=== PATIENT | female | born 1990 | race Caucasian/White ===

== ENCOUNTER 2016-04-22 03:58 | Emergency (ER) | payer MEDICAID ==
[~2016-04-22] VITALS: Ht 152.4 cm; Wt 52.5 kg
[~2016-04-22 03:58] MED LIST: ACET500C5 PO; CIPR500T4 PO; DICY10CA60 PO; HYDR-3498 PO; HYDR-842 PO; HYDR-906 PO; NAPR-260 PO; ONDA4TAB35 PO; ONDA4TAB8 PO; ONDA8TAB14 PO; OXYC-279 PO; PHEN-538 PO
[2016-04-22 04:04] VITALS: Ht 152.4 cm; Wt 52.5 kg
--- NOTE | 2016-04-22 04:24 | ERA ---
ER Documentation Chief Complaint Date/Time DATE: 04/22/16 TIME: 04:23 Chief Complaint RUq abd pain w/ vomiting since 8hours ago, 12 wks HPI The patient is a 26-year-old female, presenting with right upper quadrant abdominal pain that began about 7 PM yesterday. She has similar symptoms previously from gallbladder attack. She has vomited couple times today, mostly mucous. She denies fever, chills, neck pain, chest pain, diarrhea, constipation , dysuria. She is about 12 weeks , denies any vaginal bleeding. She does not smoke, drink, 2 para 1 Past medical history: Cholelithiasis Past surgical history: None ROS All systems reviewed and are negative except as per history of present illness. Medications Home Meds Active Scripts Cephalexin* (Keflex*) 500 Mg Capsule, 500 MG PO Q6, #40 CAP Prov:SOLIS DUDLEY MD 04/22/16 Ondansetron (Ondansetron Odt) 4 Mg Tab.rapdis, 4 MG PO Q6H Y for NAUSEA AND/OR VOMITING, #10 TAB Prov:SOLIS DUDLEY MD 04/22/16 Hydrocodone/Acetaminophen (Rosebud 5-325 Tablet) 1 Each Tablet, 1 TAB PO Q6H Y for PAIN, #7 TAB Prov:SOLIS DUDLEY MD 04/22/16 Acetaminophen* (Tylophen*) 500 Mg Capsule, 1 CAP PO Q6H Y for PAIN AND OR ELEVATED TEMP, #30 CAP Prov:TAMRA EATON PA-C 02/29/16 Ondansetron Hcl* (Zofran*) 4 Mg Tablet, 4 MG PO Q6H for NAUSEA AND/OR VOMITING, #30 TAB Prov:MINERVA CAREY PA-C 12/30/15 Oxycodone HCl/Acetaminophen (Percocet 5-325 mg Tablet) 1 Each Tablet, 1 EACH PO QHS, #7 TAB Prov:MINERVA CAREY PA-C 12/30/15 Ondansetron (Ondansetron Odt) 8 Mg Tab.rapdis, 8 MG PO Q6H Y for NAUSEA AND/OR VOMITING, #10 TAB Prov:RAMSEY DODD MD 12/28/15 Hydrocodone/Acetaminophen (Rosebud 5-325 Tablet) 1 Each Tablet, 1 TAB PO Q6H Y for PAIN, #14 TAB Prov:RAMSEY DODD MD 12/28/15 Hydrocodone Bit-Acetaminophen* (Rosebud*) 5-325 Mg Tab, 1 TAB PO Q6 Y for PAIN, # 14 TAB Prov:SHILPA DORSEY PA-C 11/21/15 Ciprofloxacin Hcl* (Ciprofloxacin Hcl*) 500 Mg Tablet, 500 MG PO BID for 7 Days , TAB Prov:SHILPA DORSEY PA-C 11/21/15 Naproxen* (Naprosyn*) 500 Mg Tablet, 500 MG PO BID Y for PAIN AND/OR INFLAMMATION, #30 TAB Prov:MINERVA CAREY PA-C 10/18/15 Hydrocodone Bit-Acetaminophen* (Rosebud*) 5-325 Mg Tab, 1 TAB PO Q6 Y for PAIN, # 10 TAB Prov:MINERVA CAREY PA-C 10/18/15 Hydroxyzine Hcl* (Atarax*) 25 Mg Tab, 25 MG PO Q6H Y for ANXIETY, #10 TAB Prov:YOLANDA SHORE PA-C 10/04/15 Phenazopyridine Hcl* (Pyridium*) 200 Mg Tab, 200 MG PO TID Y for URINARY PAIN, # 6 TAB Prov:JESSICA SCHMID NP 09/22/15 Ondansetron Hcl* (Zofran* ODT) 4 mg -ODT Tab.disper, 4 MG PO Q8 Y for NAUSEA AND /OR VOMITING, #30 TAB Prov:JESSICA SCHMID NP 09/22/15 Dicyclomine Hcl* (Bentyl*) 10 Mg Capsule, 10 MG PO QID, #20 CAP Prov:JESSICA SCHMID NP 09/22/15 Allergies Allergies: Coded Allergies: No Known Drug Allergy (Verified Allergy, Unknown, 01/20/09) PMhx/Soc History of Surgery: No Anesthesia Reaction: No Hx Neurological Disorder: No Hx Respiratory Disorders: No Hx Cardiac Disorders: No Hx Psychiatric Problems: No Hx Miscellaneous Medical Probl: Yes (GALL STONES ) Hx Alcohol Use: No Hx Substance Use: No Hx Tobacco Use: No Physical Exam Vitals Vital Signs Date Time Temp Pulse Resp B/P Pulse Ox O2 Delivery O2 Flow Rate FiO2 04/22/16 04:04 99.4 127 20 115/59 100 Physical Exam Const: No acute distress. Head: Atraumatic. Eyes: Normal Conjunctiva. ENT: Normal External Ears, Nose and Mouth. Neck: Full range of motion. No meningismus. Resp: Clear to auscultation bilaterally. Cardio: Regular rate and rhythm, no murmurs. Abd: Soft, non distended, normal bowel sounds, mild epigastric and right upper quadrant tenderness, no right lower quadrant, CVA, rigidity, rebound tenderness Skin: No petechiae or rashes. Back: No midline or flank tenderness. Ext: No cyanosis, or edema. Neur: Awake and alert. No focal deficit Psych: Normal Mood and Affect. Result Diagram: 04/22/1642904/22/16429 Results 24 hrs Laboratory Tests Test 04/22/16 04:30 04/22/16 05:14 Alanine Aminotransferase (ALT/SGPT) 21IU/L Albumin 4.0g/dl Albumin/Globulin Ratio 1.02 Alkaline Phosphatase 80IU/L Anion Gap 19 Aspartate Amino Transf (AST/SGOT) 26IU/L Basophils # 0.010^3/ul Basophils % 0.3% Blood Urea Nitrogen 5mg/dl Calcium Level 9.6mg/dl Carbon Dioxide Level 22mmol/L Chloride Level 103mmol/L Creatinine 0.49mg/dl Direct Bilirubin 0.00mg/dl Eosinophils # 0.010^3/ul Eosinophils % 0.1% Globulin 3.90g/dl Glucose Level 104mg/dl Hematocrit 33.2% Hemoglobin 11.5g/dl Indirect Bilirubin 0.2mg/dl Lipase 65U/L Lymphocytes # 0.210^3/ul Lymphocytes % 2.9% Mean Corpuscular Hemoglobin 31.1pg Mean Corpuscular Hemoglobin Concent 34.5g/dl Mean Corpuscular Volume 90.2fl Mean Platelet Volume 8.5fl Monocytes # 0.310^3/ul Monocytes % 3.2% Neutrophils # 7.710^3/ul Neutrophils % 93.5% Nucleated Red Blood Cells # 0.010^3/ul Nucleated Red Blood Cells % 0.0/100WBC Platelet Count 92149^3/UL Potassium Level 3.4mmol/L Red Blood Count 3.6810^6/ul Red Cell Distribution Width 13.6% Sodium Level 141mmol/L Total Bilirubin 0.2mg/dl Total Protein 7.9g/dl White Blood Count 8.210^3/ul Bedside Urine Blood Trace-intact Bedside Urine Glucose (UA) Negative Bedside Urine Ketones (LAB) 4+ Bedside Urine Leukocyte Esterase (L 2+ Bedside Urine Nitrite (LAB) Negative Bedside Urine Protein (LAB) 1+ Bedside Urine pH (LAB) 6.0 Current Medications Medications (Trade) Dose Ordered Sig/Jose Route PRN Reason Start Time Stop Time Status Last Admin Dose Admin Sodium Chloride 1,000 ml @ 1,000 mls/hr Q1H ONCE IV 04/22/16 04:30 04/22/16 05:29 04/22/16 04:50 Sodium Chloride (NS) 1,000 ml @ 1,000 mls/hr Q1H ONCE IV 04/22/16 04:30 04/22/16 05:29 04/22/16 05:02 Morphine Sulfate (morphine) 2 mg ONCE ONCE IV 04/22/16 04:30 04/22/16 04:31 DC 04/22/16 04:53 Ondansetron HCl (Zofran Inj) 4 mg ONCE STAT IV 04/22/16 04:27 04/22/16 04:30 DC 04/22/16 04:52 Pantoprazole (Protonix Iv) 40 mg ONCE ONCE IV 04/22/16 04:30 04/22/16 04:31 DC 04/22/16 04:52 Procedures/MDM MEDICAL MAKING DECISION: The patient is 26-year-old female, presenting with acute pericolic, acute cystitis, acute dehydration, acute hypokalemia. She was treated with 2 L normal saline for clinical dehydration, morphine 2 mg IV for pain, Zofran 4 IV for nausea, Protonix 40 mg IV, potassium chloride 20 mEq p.o. with good response. The differential diagnoses considered include but are not limited to cholelithiasis, cholecystitis, cystitis, pancreatitis, hepatitis, gastritis, peptic ulcer disease, gastric ulcer, appendicitis, diverticulitis, cholangitis, choledocholithiasis, partial small bowel obstruction. Departure Diagnosis: Primary Impression: Biliary colic Additional Impressions: UTI (urinary tract infection) Dehydration Hypokalemia Anemia Condition: Good Comments She was discharged with Kegerard RosebudNataliafran I discussed the findings with the patient. I advised the patient to follow-up with the primary physician in about 1-2 days for referral to general surgery for elective cholecystectomy, sooner if needed and return if any concern. SOLIS DUDLEY MD Apr 22, 2016 04:23
[2016-04-22] MEDS ORDERED: ONDANSETRON 4 MG INJ IV STA ×2 (04:27→06:00)
[2016-04-22] MEDS ORDERED: morphine 2 MG INJ IV ONE ×2 (04:30→06:00)
[2016-04-22] MEDS ORDERED: SOD CHLORIDE 0.9% 1,000 ML IV ONE ×2 (04:30)
[2016-04-22] MEDS ORDERED: PANTOPRAZOLE 40 MG INJ IV ONE (04:30)
[2016-04-22 04:51] LABS: BASOPHILS % 0.3 % (0.0-2.0); EOSINOPHILS % 0.1 % (0.0-7.0); HEMATOCRIT 33.2 % (37.0-47.0); HEMOGLOBIN 11.5 g/dl (12.0-16.0); LYMPHOCYTES # 0.2 10^3/ul (0.8-2.9); LYMPHOCYTES % 2.9 % (15.0-51.0); MEAN CORPUSCULAR HEMOGLOBIN 31.1 pg (29.0-33.0); MEAN CORPUSCULAR HGB CONC 34.5 g/dl (32.0-37.0); MEAN CORPUSCULAR VOLUME 90.2 fl (82.0-101.0); MEAN PLATELET VOLUME 8.5 fl (7.4-10.4); MONOCYTE # 0.3 10^3/ul (0.3-0.9); MONOCYTES % 3.2 % (0.0-11.0); NEUTROPHIL # 7.7 10^3/ul (1.6-7.5); NEUTROPHILS % 93.5 % (39.0-77.0); PLATELET COUNT 251 10^3/UL (140-440); RED BLOOD COUNT 3.68 10^6/ul (4.20-5.40); RED CELL DISTRIBUTION WIDTH 13.6 % (11.5-14.5); UNCORRECTED WBC 8.2 10^3/ul (4.8-10.8); WHITE BLOOD COUNT 8.2 10^3/ul (4.8-10.8)
[2016-04-22 04:59] LABS: CONDITION 1; LH ANALYZER COMMENTS 1
[2016-04-22 05:14] LABS: URINE BLOOD (Dip) POC Trace-intact (NEGATIVE)
[2016-04-22] MEDS ORDERED: HYDR-906 PO (05:16)
[2016-04-22] MEDS ORDERED: ONDA4TAB14 PO (05:16)
[2016-04-22] MEDS ORDERED: CEPH-443 PO (05:19)
[2016-04-22 05:20] LABS: POTASSIUM 3.4 mmol/L (3.5-5.1)
[2016-04-22 05:22] LABS: ALBUMIN/GLOBULIN RATIO 1.02; BILIRUBIN,INDIRECT 0.2 mg/dl (0-1.1); BILIRUBIN,TOTAL 0.2 mg/dl (0.2-1.3); CALCIUM 9.6 mg/dl (8.4-10.2); CREATININE 0.49 mg/dl (0.44-1.00); TOTAL PROTEIN 7.9 g/dl (6.1-8.1)
[2016-04-22] MEDS ORDERED: POTASSIUM CHLORIDE (SR) 20 MEQ TAB PO ONE (05:37)
[2016-04-22 08:23] VITALS: BP 98/59; PULSE 113; RESP 16
== END 2016-04-22 08:35 | disposition home or self-care (01) ==
LOC: E/R 03:58
DX: O23.41 Unspecified infection of urinary tract in pregnancy, first trimester (principal); O99.280 Endocrine, nutritional and metabolic diseases complicating pregnancy, unspecified trimester; E86.0 Dehydration; E87.6 Hypokalemia; Z3A.12 12 weeks gestation of pregnancy
CPT/HCPCS: 36415; 80053; 81003; 83690; 85025; 96374; 96375; 96376; C9113; J2270; J2405; J7030; Z7502; Z7610

== ENCOUNTER 2016-07-07 19:01 | Outpatient (CLI) | payer SELFPAY ==
[~2016-07-07] VITALS: Ht 154.9 cm; Wt 54.8 kg
[~2016-07-07 19:01] MED LIST changes: +CEPH-443 PO; +ONDA4TAB14 PO
[2016-07-07 19:46] VITALS: BP 115/69; PULSE 106; RESP 18
[2016-07-07] MEDS ORDERED: PRENAT PO (19:53)
[2016-07-07 20:00] LABS: ADD UMIC YES; URINE BILIRUBIN (Dip) NEGATIVE (NEGATIVE); URINE BLOOD (Dip) NEGATIVE (NEGATIVE); URINE COLOR YELLOW (YELLOW); URINE GLUCOSE (Dip) NEGATIVE (NEGATIVE); URINE KETONES (Dip) 40 (NEGATIVE); URINE LEUKOCYTE ESTERASE (Dip) 1+ (NEGATIVE); URINE NITRITE (Dip) NEGATIVE (NEGATIVE); URINE TOTAL PROTEIN (Dip) NEGATIVE (NEGATIVE); URINE UROBILINOGEN (Dip) 1.0 E.U./dL (0.1-1.0)
[2016-07-07] MEDS ORDERED: hydrOXYzine HCL 100 MG INJ IM ONE (20:00)
[2016-07-07] MEDS ORDERED: MEPERIDINE 50 MG INJ IM ONE (20:00)
[2016-07-07] MEDS ORDERED: ONDANSETRON 4 MG INJ IV STA (20:20)
[2016-07-07] MEDS ORDERED: HYDROCODONE/APAP (5/325) TAB PO ONE (20:30)
[2016-07-07] MEDS ORDERED: LACTATED RINGER'S 500 ML IV ONE (20:30)
[2016-07-07 20:35] LABS: SQUAMOUS EPITHELIAL CELL,UR MODERATE; URINE RBCS 0-2 /HPF (0)
[2016-07-07 20:36] LABS: BACTERIA,URINE FEW
[2016-07-07 20:42] LABS: ADD SCAN DIFF NO
[2016-07-07 20:46] LABS: BASOPHILS % 0.1 % (0.0-2.0); HEMOGLOBIN 9.7 g/dl (12.0-16.0); LYMPHOCYTES # 0.6 10^3/ul (0.8-2.9); LYMPHOCYTES % 6.8 % (15.0-51.0); MEAN CORPUSCULAR HEMOGLOBIN 29.8 pg (29.0-33.0); MEAN CORPUSCULAR HGB CONC 33.4 g/dl (32.0-37.0); MEAN PLATELET VOLUME 10.3 fl (7.4-10.4); MONOCYTE # 0.3 10^3/ul (0.3-0.9); MONOCYTES % 3.8 % (0.0-11.0); NEUTROPHILS % 88.9 % (39.0-77.0); PLATELET COUNT 289 10^3/UL (140-415); RED BLOOD COUNT 3.26 10^6/ul (4.20-5.40); RED CELL DISTRIBUTION WIDTH 12.5 % (11.5-14.5)
[2016-07-07] MEDS ORDERED: ONDANSETRON 4 MG TAB PO ONE (21:00)
[2016-07-07 21:01] LABS: ALBUMIN 3.4 g/dl (3.3-4.9)
[2016-07-07 21:02] LABS: POTASSIUM 3.7 mmol/L (3.5-5.1)
[2016-07-07 21:04] LABS: BILIRUBIN,INDIRECT 0.3 mg/dl (0-1.1); BILIRUBIN,TOTAL 0.3 mg/dl (0.2-1.3); CREATININE 0.48 mg/dl (0.44-1.00)
[2016-07-07 21:05] LABS: ALBUMIN/GLOBULIN RATIO 0.97; CALCIUM 8.9 mg/dl (8.4-10.2); TOTAL PROTEIN 6.9 g/dl (6.1-8.1)
--- NOTE | 2016-07-07 21:06 | RADRPT ---
PROCEDURE: US Obstetrical, limited CLINICAL INDICATION: Cervical length TECHNIQUE: Multiple real-time images were acquired of the patient's maternal abdomen utilizing a curved array transducer. COMPARISON: 02/29/2016 FINDINGS: There is a single live intrauterine fetus positioned cephalic. The placenta is implanted posteriorly and is grade 0. There is no placenta previa or abruptio. The cervical length measures 3.2 cm. The heart rate is 134 beats per minute. IMPRESSION: 1. Limited study demonstrating a cervical length of 3.2 cm. 2. A single live intrauterine fetus cephalic in presentation. 3. A posterior placenta, grade 0, no previa. Physician Robert Date Time Electronically viewed and signed by Physician Robert on 07/07/2016 21:06 /
[2016-07-07] MEDS ORDERED: LACTATED RINGER'S 1,000 ML IV SCH (21:20)
[2016-07-07] MEDS ORDERED: TERBUTALINE 1 MG/ML INJ SC ONE (23:00)
--- NOTE | 2016-07-08 01:27 | TRIAGE ---
OB Triage Datetime Report Generated by CPN: 07/08/2016 01:27 Datetime: 07/07/2016 22:34 Stage of : OB Triage Monitor Mode: External Quality: Mild Pattern: Normal: <= 5 Contractions in 10 Minutes Resting Tone [place]: Relaxed Contraction Comments: Pt states she's feeling cramping still Heart Rate FHR Baseline Rate: 140 Monitor Mode: External US FHR Baseline Changes: No Baseline Change Variability: Moderate 6-25 bpm Accelerations: 10X10 Decelerations: None Category: Category I Pain Assessment Pain Scale: 8 Pain Presence: Intermittent Pain Type: Cramping Pain Location: Abdomen Datetime: 07/07/2016 22:17 Vaginal Exam Membrane Status: Intact Datetime: 07/07/2016 21:38 Nausea/Vomiting: Hx of Nausea/Vomiting Monitor Mode: External Monitor Mode: External US Pain Assessment Pain Scale: 8 Pain Presence: Intermittent Pain Type: Cramping Pain Location: Abdomen Pain Assessment Comments: Pt states she's feeling better Datetime: 07/07/2016 20:51 Monitor Mode: External Quality: Mild Pattern: Normal: <= 5 Contractions in 10 Minutes Resting Tone [place]: Relaxed Heart Rate FHR Baseline Rate: 140 Monitor Mode: External US FHR Baseline Changes: No Baseline Change Variability: Moderate 6-25 bpm Accelerations: 10X10 Datetime: 07/07/2016 20:25 Stage of : OB Triage Monitor Mode: External Quality: Mild Pattern: Normal: <= 5 Contractions in 10 Minutes Resting Tone [place]: Relaxed Heart Rate FHR Baseline Rate: 140 Monitor Mode: External US FHR Baseline Changes: No Baseline Change Variability: Moderate 6-25 bpm Accelerations: 10X10 Comments: FHR per GA Datetime: 07/07/2016 19:59 Stage of : OB Triage Monitor Mode: External Duration (sec)2399: 20-30sec Quality: Mild Pattern: Normal: <= 5 Contractions in 10 Minutes Resting Tone [place]: Relaxed Contraction Comments: pt states she feels pressure but no ucs Heart Rate FHR Baseline Rate: 140 Monitor Mode: External US FHR Baseline Changes: No Baseline Change Variability: Moderate 6-25 bpm Category: Category I Pain Assessment Pain Scale: 9 Pain Presence: Constant Pain Type: Sharp; Pressure Pain Location: Abdomen Datetime: 07/07/2016 19:33 Stage of : OB Triage Monitor Mode: External Resting Tone [place]: Relaxed Monitor Mode: External US FHR Baseline Changes: No Baseline Change Variability: Moderate 6-25 bpm Accelerations: 10X10 Category: Category I Datetime: 07/07/2016 19:20 Time of Arrival: 07/07/2016 19:00 EGA: 23.4 Arrived By: Ambulatory Arrived From: Home Chief Complaint: w/ c/o rt upper abd pain and lower abd pressure since [address] [place] was diagnosed w/ gallstones 1yr ago Movement: Present Contractions: Denies/Absent Rupture of Membranes: Denies Vaginal Bleeding: None Vaginal Discharge: Denies Recent Sexual Intercouse: Denies Abdominal Trauma: Not Applicable Patient Complaints: Nausea; Vomiting; Epigastric Pain Time Provider Notified: 07/07/2016 19:33 Provider Notified: Dr Rodriguez Initial Plan: EFM, CBC,UA,CMP,LFT,ZOFRAN,DEMEROL/VISTARIL Datetime: 07/07/2016 19:15 Maternal Assessment Level of Consciousness: Fully Conscious Headache: Denies Blurred Vision: No Nausea/Vomiting: Present RUQ Epigastric Pain: Present Facial Edema: None Labor Evaluation Frequency: placed Monitor Mode: External Monitor Mode: External US Comments: FHT 140 Pain Assessment Pain Scale: 10 Pain Presence: Constant Pain Type: Stabbing; Pressure Pain Location: Abdomen
--- NOTE | 2016-07-08 04:52 | QN ---
Documentation Comment 26-year-old with IUP at 23 weeks and 4 days now presents with complaint of upper abdominal pain and left upper quadrant and epigastric area that moves toward the back as well as nausea and pelvic pressure. She was diagnosed with gallstones about a year ago. Patient reports that she had one episode of admission due to cholecystitis in the past. Patient denies leaking of fluid, vaginal bleeding or decreased movement. Physical examination: General appearance alert and oriented 4. Patient is moderate distress. Abdomen: Soft, gravid, fundal height consistent with gestational age. No uterine tenderness, No guarding, no rigidity, negative Langford's sign. Moderate tenderness in the epigastric and right upper quadrant noted. No suprapubic tenderness NST: Appropriate for gestational age. Irritability and occasionally irregular contractions seen on the monitor. UA: Has moderate amount of ketones. Hematology - 72 Hrs Test 07/07/16 20:22 White Blood Count 9.010^3/ul (4.8-10.8) Red Blood Count 3.2610^6/ul (4.20-5.40) L Hemoglobin 9.7g/dl (12.0-16.0) L Hematocrit 29.0% (37.0-47.0) L Mean Corpuscular Volume 89.0fl (82.0-101.0) Mean Corpuscular Hemoglobin 29.8pg (29.0-33.0) Mean Corpuscular Hemoglobin Concent 33.4g/dl (32.0-37.0) Red Cell Distribution Width 12.5% (11.5-14.5) Platelet Count 31562^3/UL (140-415) Mean Platelet Volume 10.3fl (7.4-10.4) # Neutrophils % 88.9% (39.0-77.0) H Lymphocytes % 6.8% (15.0-51.0) L Monocytes % 3.8% (0.0-11.0) Eosinophils % 0.0% (0.0-7.0) Basophils % 0.1% (0.0-2.0) Nucleated Red Blood Cells % 0.0/100WBC (0.0-0.0) Neutrophils # 8.010^3/ul (1.6-7.5) H Lymphocytes # 0.610^3/ul (0.8-2.9) L Monocytes # 0.310^3/ul (0.3-0.9) Eosinophils # 0.010^3/ul (0.0-0.5) Basophils # 0.010^3/ul (0.0-0.1) Nucleated Red Blood Cells # 0.010^3/ul (0.0-0.0) Chemistry Test 07/07/16 20:28 Sodium Level 135mmol/L (135-144) Potassium Level 3.7mmol/L (3.5-5.1) Chloride Level 104mmol/L (97-110) Carbon Dioxide Level 23mmol/L (21-31) Anion Gap 12 (8-16) Blood Urea Nitrogen 7mg/dl (7-20) Creatinine 0.48mg/dl (0.44-1.00) Glucose Level 79mg/dl (70-220) Calcium Level 8.9mg/dl (8.4-10.2) Total Bilirubin 0.3mg/dl (0.2-1.3) Direct Bilirubin 0.00mg/dl (0.00-0.20) Indirect Bilirubin 0.3mg/dl (0-1.1) Aspartate Amino Transf (AST/SGOT) 26IU/L (15-46) Alanine Aminotransferase (ALT/SGPT) 22IU/L (13-69) Alkaline Phosphatase 128IU/L (42-121) H Total Protein 6.9g/dl (6.1-8.1) Albumin 3.4g/dl (3.3-4.9) Globulin 3.50g/dl (1.3-3.2) H Albumin/Globulin Ratio 0.97 Amylase Level 154U/L (11-123) H Lipase 73U/L (23-300) PROCEDURE: US Obstetrical, limited CLINICAL INDICATION: Cervical length TECHNIQUE: Multiple real-time images were acquired of the patient's maternal abdomen utilizing a curved array transducer. COMPARISON: 02/29/2016 FINDINGS: There is a single live intrauterine fetus positioned cephalic. The placenta is implanted posteriorly and is grade 0. There is no placenta previa or abruptio. The cervical length measures 3.2 cm. The heart rate is 134 beats per minute. IMPRESSION: 1. Limited study demonstrating a cervical length of 3.2 cm. 2. A single live intrauterine fetus cephalic in presentation. 3. A posterior placenta, grade 0, no previa. Assessment: IUP at 23 weeks and 4 days Epigastric pain and upper abdominal pain, likely due to biliary colic. LFTs normal. No evidence of cholecystitis. Resolved with Pepcid and Demerol Occasional uterine contractions and irritability. Cervix long and closed. Resolved with IV hydration and terbutaline. Patient reported significant improvement of her pain and symptoms. She was noted to be stable enough to be discharged home. Strict labor precaution discussed with the patient. Advised the patient about low-fat diet to prevent of recurrence of biliary colic Pepcid 20 mg daily advise Follow-up in the next couple days with her primary OB recommended. Patient verbalized understanding. EVELIO ANDERSON MD Jul 08, 2016 04:52
== END 2016-07-08 00:22 | disposition home or self-care (01) ==
LOC: L-D 19:01 → OBT 19:01
PROVIDERS: ATTEND Obstetrics & Gynecology
DX: O26.892 Other specified pregnancy related conditions, second trimester (principal); R10.13 Epigastric pain; Z3A.23 23 weeks gestation of pregnancy
CPT/HCPCS: 36415; 76817; 80053; 80076; 81001; 82150; 83690; 85025; 96360; 96361; 96372; 96374; G0463; J2405; J3105; J7120; 81003

== ENCOUNTER 2016-08-25 02:10 | Outpatient (CLI) | payer MEDICAID ==
[~2016-08-25] VITALS: Ht 154.9 cm; Wt 58.4 kg
[~2016-08-25 02:10] MED LIST changes: -ACET500C5 PO; -CEPH-443 PO; -CIPR500T4 PO; -DICY10CA60 PO; -HYDR-3498 PO; -HYDR-842 PO; -HYDR-906 PO; -NAPR-260 PO; -ONDA4TAB14 PO; -ONDA4TAB35 PO; -ONDA4TAB8 PO; -ONDA8TAB14 PO; -OXYC-279 PO; -PHEN-538 PO; +PRENAT PO
[2016-08-25 02:47] VITALS: Ht 154.9 cm; Wt 58.4 kg
[2016-08-25 02:48] VITALS: BP 104/70; PULSE 96; RESP 18
[2016-08-25] MEDS ORDERED: MEPERIDINE 25 MG INJ IV ONE (04:00)
--- NOTE | 2016-08-25 04:12 | QN ---
Documentation Comment OB TRIAGE 26 y/o at 30+ weeks c/o epigastric pain radiating to the back. Also c/o nausea but no vomiting. No leakage of fluid or vaginal bleeding. PMHx Gallstones Afebrile VSS Abdomen soft Strip Category I Will give IV hydration, do blood work to assess for gallstones and OB ultrasound. KIERRA HERNANDEZ MD August 25, 2016 04:12
[2016-08-25] MEDS ORDERED: LACTATED RINGER'S 1,000 ML IV ONE (04:30)
--- NOTE | 2016-08-25 04:36 | RADRPT ---
PROCEDURE: Obstetrical ultrasound, limited. CLINICAL INDICATION: Pelvic pain. TECHNIQUE: Multiple sonographic images of the pelvis were obtained using transabdominal technique . Images were obtained with malik scale and color Doppler. The images were reviewed on a PACS works tation. COMPARISON: 07/07/2016. FINDINGS: There is a single living intrauterine gestation with the fetus in a cephalic presentation. he art tones of 131 beats per minute are identified. The placenta is posterior in location, grade 1. There is no evidence of placenta previa or abruption. Measurements were made in order to determine age. The results are as follows: BPD =7.86 cm HC =28.74 cm AC =27.16 cm FL =6.06 cm. Estimated gestational age of approximately 31 weeks and 4 days. The estimated date of delivery is 10/23/2016. The EFW = 1756 +/- 263 grams. Estimated weight percentage equals 66.1%. IMPRESSION: Single viable intrauterine gestation of approximately 31 weeks and 4 days, with an ultrasound TAM of 10/23/2016. .Stefano Aguirre MD, MD Date Time Electronically viewed and signed by .Stefano Aguirre MD, MD on 08/25/2016 04:36 .T/
--- NOTE | 2016-08-25 04:37 | RADRPT ---
PROCEDURE: Biophysical profile. CLINICAL INDICATION: Pelvic pain. TECHNIQUE: Multiple sonographic images of the pelvis were obtained with transabdominal technique. Endovaginal evaluation of the cervix was also performed. COMPARISON: 07/07/2016. FINDINGS: There is a single living intrauterine gestation with the fetus in a vertex position. The placenta i s posterior in location, grade 1. heart tones of 131 beats per minute are identified. There i s normal amniotic fluid volume with an ABI of 17.8 cm. The cervix is closed measuring 3.5 cm. breathing movements = 2 Gross body movements = 2 tone = 2 Qualitative AFV = 2 IMPRESSION: Biophysical profile 8 out of 8. .Stefano Aguirre MD, Date Time Electronically viewed and signed by .Stefano Aguirre MD, on 08/25/2016 04:37 .T/
[2016-08-25 05:15] LABS: ADD SCAN DIFF NO
[2016-08-25 05:22] LABS: BASOPHILS % 0.1 % (0.0-2.0); EOSINOPHILS % 0.1 % (0.0-7.0); HEMATOCRIT 27.4 % (37.0-47.0); HEMOGLOBIN 8.9 g/dl (12.0-16.0); LYMPHOCYTES # 1.2 10^3/ul (0.8-2.9); LYMPHOCYTES % 17.9 % (15.0-51.0); MEAN CORPUSCULAR HEMOGLOBIN 26.4 pg (29.0-33.0); MEAN CORPUSCULAR HGB CONC 32.5 g/dl (32.0-37.0); MEAN CORPUSCULAR VOLUME 81.3 fl (82.0-101.0); MONOCYTE # 0.5 10^3/ul (0.3-0.9); MONOCYTES % 6.7 % (0.0-11.0); NEUTROPHILS % 74.5 % (39.0-77.0); PLATELET COUNT 297 10^3/UL (140-415); RED BLOOD COUNT 3.37 10^6/ul (4.20-5.40); RED CELL DISTRIBUTION WIDTH 13.8 % (11.5-14.5); WHITE BLOOD COUNT 6.8 10^3/ul (4.8-10.8)
[2016-08-25 05:40] LABS: ALBUMIN 3.4 g/dl (3.3-4.9)
[2016-08-25 05:41] LABS: POTASSIUM 3.6 mmol/L (3.5-5.1)
[2016-08-25 05:43] LABS: ALBUMIN/GLOBULIN RATIO 0.87; BILIRUBIN,INDIRECT 0.3 mg/dl (0-1.1); BILIRUBIN,TOTAL 0.3 mg/dl (0.2-1.3); CREATININE 0.43 mg/dl (0.44-1.00); TOTAL PROTEIN 7.3 g/dl (6.1-8.1)
[2016-08-25] MEDS ORDERED: ONDANSETRON 4 MG INJ IV ONE (05:45)
--- NOTE | 2016-08-25 06:40 | TRIAGE ---
OB Triage Datetime Report Generated by CPN: 08/25/2016 06:39 Datetime: 08/25/2016 06:36 Stage of : OB Triage Datetime: 08/25/2016 06:31 Stage of : OB Triage Datetime: 08/25/2016 06:24 Pain Assessment Pain Scale: 0 Pain Assessment Comments: PT. STATES SHES FEELING BETTER AFTER MED Datetime: 08/25/2016 06:00 Labor Evaluation Frequency: NONE Monitor Mode: External Pattern: Normal: <= 5 Contractions in 10 Minutes Heart Rate FHR Baseline Rate: 130 Monitor Mode: External US FHR Baseline Changes: No Baseline Change Variability: Moderate 6-25 bpm Accelerations: 10X10 Decelerations: None Category: Category I Datetime: 08/25/2016 05:42 Monitor Mode: External US Datetime: 08/25/2016 05:41 Nausea/Vomiting: Present Datetime: 08/25/2016 05:00 Labor Evaluation Frequency: NONE Pattern: Normal: <= 5 Contractions in 10 Minutes Heart Rate FHR Baseline Rate: 135 Monitor Mode: External US FHR Baseline Changes: No Baseline Change Variability: Moderate 6-25 bpm Datetime: 08/25/2016 03:55 Monitor Mode: External Contraction Comments: MONITORS REAPPLIED Monitor Mode: External US Comments: MONITORS REAPPLIED Datetime: 08/25/2016 03:50 Stage of : OB Triage Datetime: 08/25/2016 03:25 Stage of : OB Triage Datetime: 08/25/2016 03:00 Labor Evaluation Frequency: NONE Monitor Mode: External Duration (sec)2399: NONE Pattern: Normal: <= 5 Contractions in 10 Minutes Contraction Comments: PT. DENIES UC'S Monitor Mode: External US FHR Baseline Changes: No Baseline Change Variability: Moderate 6-25 bpm Accelerations: 15X15 Decelerations: None Category: Category I Datetime: 08/25/2016 02:38 Stage of : OB Triage Assessment Type: Triage Time of Arrival: 08/25/2016 02:07 EGA: 30.4 Arrived By: Wheelchair Arrived From: Home Chief Complaint: BURNING IN UPPER BACK FROM GALL STONES/ CHEST PAIN Movement: Present Rupture of Membranes: Denies Vaginal Bleeding: None Vaginal Discharge: Denies Recent Sexual Intercouse: Denies Abdominal Trauma: Not Applicable Patient Complaints: Other Time Provider Notified: 08/25/2016 03:25 Provider Notified: DR HERNANDEZ Initial Plan: CALL ELLA REY Maternal Assessment Level of Consciousness: Fully Conscious DTR's/Clonus: DTRs 2+; No Clonus Headache: Denies Blurred Vision: No Respiratory Effort: Unlabored; Regular Rhythm; Equal Expansion Breath Sounds, Left: Clear and Equal Breath Sounds, Right: Clear and Equal Nausea/Vomiting: Denies RUQ Epigastric Pain: Denies Lower Extremities Edema: None Degree: None Upper Extremities Edema: None Degree: None Facial Edema: None Temperature Route: Oral Fall Risk Assessment History of Falling: (0) No Secondary Diagnosis: (0) No Ambulatory Aid: (0) Bedrest/Nurse Assist IV Therapy: (0) No Gait: (0) Normal/Bedrest/Immobile Mental Status: (0) Oriented to Own Ability Fall Score: 0 Fall Risk Score Definition: No Risk: No action required Monitor Mode: External Monitor Mode: External US Datetime: 07/08/2016 00:05 Monitor Mode: External Pattern: Normal: <= 5 Contractions in 10 Minutes Resting Tone [place]: Relaxed Pain Assessment Pain Scale: 0 Pain Presence: None/Denies Pain Type: N/A Pain Assessment Comments: Pt states she feels much better and desires to go home Datetime: 07/07/2016 23:33 Monitor Mode: External Quality: Mild Pattern: Normal: <= 5 Contractions in 10 Minutes Resting Tone [place]: Relaxed Heart Rate FHR Baseline Rate: 150 Monitor Mode: External US FHR Baseline Changes: No Baseline Change Variability: Moderate 6-25 bpm Accelerations: 10X10 Datetime: 07/07/2016 19:20 EGA: 23.4
[2016-08-25 06:42] LABS: ADD UMIC YES; URINE BILIRUBIN (Dip) NEGATIVE (NEGATIVE); URINE BLOOD (Dip) NEGATIVE (NEGATIVE); URINE COLOR LT. YELLOW (YELLOW); URINE GLUCOSE (Dip) NEGATIVE (NEGATIVE); URINE KETONES (Dip) NEGATIVE (NEGATIVE); URINE LEUKOCYTE ESTERASE (Dip) 1+ (NEGATIVE); URINE NITRITE (Dip) NEGATIVE (NEGATIVE); URINE TOTAL PROTEIN (Dip) NEGATIVE (NEGATIVE); URINE UROBILINOGEN (Dip) 0.2 E.U./dL (0.1-1.0)
[2016-08-25 06:59] LABS: URINE RBCS NONE SEEN /HPF (0)
== END 2016-08-25 06:45 | disposition home or self-care (01) ==
LOC: OBT 02:10 → L-D 02:30 → OBT 06:45
PROVIDERS: ATTEND Obstetrics & Gynecology
DX: O26.893 Other specified pregnancy related conditions, third trimester (principal); R10.13 Epigastric pain; R11.0 Nausea; Z87.19 Personal history of other diseases of the digestive system
CPT/HCPCS: 76815; 76817; 76818; J2175; J2405; J7120; 36415; 80053; 81001; 81003; 82150; 83690; 85025; 96374; 96375; G0463

== ENCOUNTER 2016-10-14 03:20 | Outpatient (CLI) | payer MEDICAID ==
[~2016-10-14] VITALS: Ht 154.9 cm; Wt 60.0 kg
--- NOTE | 2016-10-14 03:28 | NSTRPT ---
NST Information Datetime Report Generated by CPN: 10/14/2016 03:28 Datetime: 10/08/2016 14:45 NST Information EGA: 36.6 Test Number: 4 Time on Monitor: 10/08/2016 14:59 Time off Monitor: 10/08/2016 15:28 NST Duration (Min): 29 Reason for NST: Low OUMAR; Other Reason for NST Other: Single Umbilical Artery Test and Monitor Explained: Monitor Explained; Test Explained; Verbalized Understanding Pulse: 82 Resp: 18 SBP: 101 DBP: 64 Test Evaluation NST Interventions: None Patient States Movement: Present Contraction Frequency: irrit, FHR Baseline : 140 Variability: Moderate 6-25bpm Accelerations: 15X15 Decelerations: None FHR Category: Category I NST Results: Reactive Comments: To u/s. ABI 15.8cm. CEPHALIC. 1535-Pt home undelivered with labor precautions, kick count instructions reviewed and follo w up NST appt. given. States understanding and denies futher questions at this time. Electronically Signed By E-Signature: with User ID: [email or web address] Datetime: 10/05/2016 09:19 NST Information EGA: 36.3 NST Duration (Min): 24 Datetime: 10/01/2016 09:15 NST Information EGA: 35.6 NST Duration (Min): 35 Datetime: 09/28/2016 09:00 NST Information EGA: 35.3 NST Duration (Min): 31
[2016-10-14 03:49] VITALS: BP 121/77; PULSE 78; RESP 18
[2016-10-14 04:10] LABS: ADD UMIC YES; UR ASCORBIC ACID NEGATIVE (NEGATIVE); UR BILIRUBIN (Dip) NEGATIVE (NEGATIVE); UR BLOOD (Dip) 1+ mg/dL (NEGATIVE); UR CLARITY SLIGHTLY CLOUDY (CLEAR); UR COLOR YELLOW (YELLOW); UR GLUCOSE (Dip) NEGATIVE (NEGATIVE); UR KETONES (Dip) NEGATIVE (NEGATIVE); UR LEUKOCYTE ESTERASE (Dip) 3+ Leu/ul (NEGATIVE); UR NITRITE (Dip) NEGATIVE (NEGATIVE); UR RBC 2 /HPF (0-5); UR SPECIFIC GRAVITY (Dip) 1.008 (1.003-1.030); UR SQUAMOUS EPITHELIAL CELL MODERATE /HPF (FEW); UR TOTAL PROTEIN (Dip) NEGATIVE (NEGATIVE); UR UROBILINOGEN (Dip) NEGATIVE (NEGATIVE)
[2016-10-14] MEDS ORDERED: ACETAMINOPHEN 500 MG TAB PO ONE (05:05)
--- NOTE | 2016-10-14 05:07 | RADRPT ---
PROCEDURE: OB ultrasound for biophysical profile CLINICAL INDICATION: Decreased movement TECHNIQUE: Multiple sonographic images of the pelvis were obtained. Transabdominal views of the g ravid uterus are available for review. The images were reviewed on a PACS workstation. COMPARISON: None FINDINGS: breathing movement = 2/2 tone = 2/2 motion = 2/2 ABI = 2/2 ABI = 10.7 cm Single live intrauterine with cardiac activity of 161 bpm. position is cephal ic. The placenta is posterior. There is a single image of the umbilical cord which appears demonstr ate only 2 vessels. IMPRESSION: 1. Single live intrauterine gestation. 2. Biophysical profile = 8/8. 3. ABI = 10.7 cm. 4. There is a single image of the umbilical cord which appears to demonstrate only 2 vessels. Mirtha elation with prior anatomic survey is recommended. RPTAT: HH .Joanne Tran MD, MD Date Time Electronically viewed and signed by .Joanne Tran MD, on 10/14/2016 05:06 .G/
--- NOTE | 2016-10-14 05:08 | RADRPT ---
PROCEDURE: US OB. CLINICAL INDICATION: Decreased movement TECHNIQUE: Multiple sonographic images of the pelvis were obtained. Transabdominal imaging only w as performed. The images were reviewed on a PACS workstation. COMPARISON: No prior studies are available for comparison. FINDINGS: There is a single live intrauterine gestation. Cardiac activity is present with 163 beats per minut e. position is cephalic. Measurements were made in order to determine age. The results are as follows: BPD = 9.12 cm HC = 33.67 cm AC = 34.72 cm FL = 7.22 cm. Estimated gestational age of approximately 37 weeks 6 days. The estimated date of delivery is 10/29/2016. The EFW = 3383 g, 69.4 %ile. The placenta is posterior. There is no evidence for an abruption or placenta previa. IMPRESSION: 1. Single live intrauterine gestation of approximately 37 weeks 6 days, by ultrasound criteria. 2. The estimated date of delivery is 10/29/2016. 3. The estimated weight is 3383 g, 69.4 %ile. RPTAT: HH .Joanne Tran MD, Date Time Electronically viewed and signed by .Joanne Tran MD, on 10/14/2016 05:08 .G/
--- NOTE | 2016-10-14 07:07 | TRIAGE ---
OB Triage Datetime Report Generated by CPN: 10/14/2016 07:06 Datetime: 10/14/2016 05:22 Pain Assessment Pain Scale: 10 Pain Presence: Constant Pain Type: Stabbing; Pressure; Ache Pain Location: Back Datetime: 10/14/2016 05:01 Stage of : OB Triage Datetime: 10/14/2016 04:10 Stage of : OB Triage Datetime: 10/14/2016 04:06 Stage of : OB Triage Labor Evaluation Monitor Mode: External Quality: Moderate Pattern: Normal: <= 5 Contractions in 10 Minutes Resting Tone [place]: Relaxed Heart Rate FHR Baseline Rate: 115 Monitor Mode: External US FHR Baseline Changes: No Baseline Change Variability: Moderate 6-25 bpm Accelerations: 15X15 Decelerations: None Category: Category I Vaginal Exam Dilatation (cms): 1.5 Effacement (%): 60 Station: -2 Exam By: Flor Gillette Membrane Status: Intact Vaginal Bleeding: None Cervix, Consistency: Soft Cervix, Position: Posterior Presentation 'A': Cephalic Datetime: 10/14/2016 03:34 Stage of : OB Triage Maternal Assessment Level of Consciousness: Fully Conscious Headache: Denies Blurred Vision: No Respiratory Effort: Unlabored Nausea/Vomiting: Denies RUQ Epigastric Pain: Denies Labor Evaluation Monitor Mode: External Quality: Mild Pattern: Normal: <= 5 Contractions in 10 Minutes Resting Tone [place]: Relaxed Heart Rate FHR Baseline Rate: 120 Monitor Mode: External US Pain Assessment Pain Scale: 10 Pain Presence: Constant Pain Type: Stabbing; Ache Pain Location: Back Datetime: 10/14/2016 03:28 Time of Arrival: 10/14/2016 03:17 EGA: 37.5 Arrived By: Wheelchair Arrived From: Home Chief Complaint: c/o constant back pain 01/18 Movement: Present Rupture of Membranes: Denies Vaginal Bleeding: None Vaginal Discharge: Denies Recent Sexual Intercouse: Denies Abdominal Trauma: Not Applicable Patient Complaints: Back Pain Time Provider Notified: 10/14/2016 04:10 Provider Notified: Dr Rodriguez Initial Plan: EFM, SVE, EFW, BPP, UA Datetime: 08/25/2016 02:38 EGA: 30.4 Fall Risk Assessment Fall Score: 0 Fall Risk Score Definition: No Risk: No action required Datetime: 07/07/2016 19:20 EGA: 23.4
--- NOTE | 2016-10-14 07:08 | PN ---
Triage Information Date/Time October 14, 2016 Weeks of Gestation 37 weeks and 5 days : 4 Para: 1 Diabetes: none Hypertention: none Additional information Patient is a 26-year-old with IUP at 37 weeks and 5 days presented with complaint of low back pain and nausea and headache since yesterday. Nausea and headache resolved. Complains of low back pain 10/10 for the last 2 days. Past OB history significant for history of gallstone for 1 year. Astigmatic. She also had a single umbilical artery as well as low Pap a and has been monitoring by [facility] in [facility] clinic. She was seen last week in [facility] clinic. She denies any leaking of fluid or vaginal bleeding. She was noted to be 1 cm 60-2. Cervix was posterior. Denies any urinary symptoms however urine showed elevated white BC concerning for possible UTI. Objective Vital Signs Date Time Temp Pulse Resp B/P Pulse Ox O2 Delivery O2 Flow Rate FiO2 10/14/16 03:49 98.4 78 18 121/77 Room Air Heart Rate: 130's Contractions: 6-10 Minutes Apart Exam General appearance: Alert and oriented 4. Patient does not appear to be in any acute distress. Abdomen: Soft, gravid, fundal height consistent with gestational age. No CVA tenderness no uterine tenderness. Extremities: No calf tenderness, no click no edema NST: Category 1 Results/Medications Results 24 hrs Laboratory Tests Test 10/14/16 03:30 Urine Color YELLOW Urine Clarity SLIGHTLY CLOUDY A Urine pH 7.0 Urine Specific [place] 1.008 Urine Ketones NEGATIVE Urine Nitrite NEGATIVE Urine Bilirubin NEGATIVE Urine Urobilinogen NEGATIVE Urine Leukocyte Esterase 3+ H Urine Microscopic RBC 2 Urine Microscopic WBC 59 H Urine Squamous Epithelial Cells MODERATE Urine Hemoglobin 1+ H Urine Glucose NEGATIVE Urine Total Protein NEGATIVE Imaging Results PROCEDURE: OB ultrasound for biophysical profile CLINICAL INDICATION: Decreased movement TECHNIQUE: Multiple sonographic images of the pelvis were obtained. Transabdominal views of the gravid uterus are available for review. The images were reviewed on a PACS workstation. COMPARISON: None FINDINGS: breathing movement = 2/2 tone = 2/2 motion = 2/2 ABI = 2/2 ABI = 10.7 cm Single live intrauterine with cardiac activity of 161 bpm. position is cephalic. The placenta is posterior. There is a single image of the umbilical cord which appears demonstrate only 2 vessels. IMPRESSION: 1. Single live intrauterine gestation. 2. Biophysical profile = 8/8. 3. ABI = 10.7 cm. 4. There is a single image of the umbilical cord which appears to demonstrate only 2 vessels. Correlation with prior anatomic survey is recommended. RPTAT: HH \PROCEDURE: US OB. CLINICAL INDICATION: Decreased movement TECHNIQUE: Multiple sonographic images of the pelvis were obtained. Transabdominal imaging only was performed. The images were reviewed on a PACS workstation. COMPARISON: No prior studies are available for comparison. FINDINGS: There is a single live intrauterine gestation. Cardiac activity is present with 163 beats per minute. position is cephalic. Measurements were made in order to determine age. The results are as follows: BPD = 9.12 cm HC = 33.67 cm AC = 34.72 cm FL = 7.22 cm. Estimated gestational age of approximately 37 weeks 6 days. The estimated date of delivery is 10/29/2016. The EFW = 3383 g, 69.4 %ile. The placenta is posterior. There is no evidence for an abruption or placenta previa. IMPRESSION: 1. Single live intrauterine gestation of approximately 37 weeks 6 days, by ultrasound criteria. 2. The estimated date of delivery is 10/29/2016. 3. The estimated weight is 3383 g, 69.4 %ile. Assessment/Plan IUP at 37 weeks and 5 7 days Low back pain Abdominal cramps, false labor pain. No cervical change noted UA consistent with UTI We will treat for UTI with Keflex 500 mg p.o. 4 times daily Patient felt improvement after she received IV bolus as well as thousand milligram of Tylenol She did not feel any low back pain or lower abdominal pain prior to DC home. Labor precaution and kick count discussed with the patient next Continue antibiotics for 7 days P.o. hydration Follow-up with OB clinic for NST twice a week as it is scheduled. Return to triage as needed any other complaints. EVELIO ANDERSON MD Oct 14, 2016 07:08
== END 2016-10-14 06:56 | disposition home or self-care (01) ==
LOC: OBT 03:20 → L-D 03:25 → OBT 06:56
PROVIDERS: ATTEND Obstetrics & Gynecology
DX: O26.893 Other specified pregnancy related conditions, third trimester (principal); Z3A.37 37 weeks gestation of pregnancy; M54.5 Low back pain; R51 Headache
CPT/HCPCS: 76815; 76818; 81001; Z7500; Z7610; G0463

== ENCOUNTER 2016-11-01 01:50 | Inpatient (IN) | payer MEDICAID ==
[2016-11-01 02:08] VITALS: BP 119/80; PULSE 18; RESP 17
[2016-11-01] MEDS ORDERED: FERR325C PO (02:12)
[2016-11-01] MEDS ORDERED: BUTORPHANOL 2 MG INJ IV PRN (03:00)
[2016-11-01] MEDS ORDERED: OXYTOCIN 30 UNITS/LR 500 ML IV PRN (03:00)
[2016-11-01] MEDS ORDERED: AMPICILLIN 2 GM/NS (PMX) 100 ML IV ONE (03:00)
[2016-11-01] MEDS ORDERED: OXYTOCIN 30 UNITS/LR 500 ML IV SCH ×2 (03:00→08:00)
[2016-11-01] MEDS ORDERED: CARBOPROST 250 MCG INJ IM PRN (03:00)
[2016-11-01] MEDS ORDERED: IBUPROFEN 600 MG TAB PO PRN (03:00)
[2016-11-01] MEDS ORDERED: METHYLERGONOVINE 0.2 MG INJ IM PRN (03:00)
[2016-11-01] MEDS ORDERED: MISOPROSTOL 200 MCG TAB PR PRN (03:00)
[2016-11-01] MEDS ORDERED: LIDOCAINE 1% (MPF) 30 ML INJ INJ PRN (03:00)
[2016-11-01] MEDS: LACTATED RINGER'S 1,000 ML IV SCH ×4 (03:08→22:45)
[2016-11-01 03:21] LABS: ABNORMAL IP MESSAGE 1; BASOPHILS % 0.3 % (0.0-2.0); EOSINOPHILS % 0.2 % (0.0-7.0); HEMATOCRIT 27.8 % (37.0-47.0); HEMOGLOBIN 8.6 g/dl (12.0-16.0); LYMPHOCYTES # 1.8 10^3/ul (0.8-2.9); LYMPHOCYTES % 28.2 % (15.0-51.0); MEAN CORPUSCULAR HEMOGLOBIN 23.2 pg (29.0-33.0); MEAN CORPUSCULAR HGB CONC 30.9 g/dl (32.0-37.0); MEAN CORPUSCULAR VOLUME 74.9 fl (82.0-101.0); MEAN PLATELET VOLUME 12.2 fl (7.4-10.4); MONOCYTE # 0.4 10^3/ul (0.3-0.9); MONOCYTES % 6.1 % (0.0-11.0); NEUTROPHIL # 4.2 10^3/ul (1.6-7.5); NEUTROPHILS % 64.6 % (39.0-77.0); NUCLEATED RED BLOOD CELLS # 0.1 10^3/ul (0.0-0.0); NUCLEATED RED BLOOD CELLS% 0.9 /100WBC (0.0-0.0); PLATELET COUNT 266 10^3/UL (140-415); RED BLOOD COUNT 3.71 10^6/ul (4.20-5.40); RED CELL DISTRIBUTION WIDTH 22.5 % (11.5-14.5); WHITE BLOOD COUNT 6.5 10^3/ul (4.8-10.8)
[2016-11-01 03:32] LABS: POSITIVE DIFF @See below
[2016-11-01 03:42] LABS: INR 0.85; PARTIAL THROMBOPLASTIN TIME 26.7 Sec (25.0-35.0); PROTIME 11.6 Sec (12.2-14.2); PT RATIO 0.9
[2016-11-01] MEDS ORDERED: LACTATED RINGER'S 1,000 ML IV PRN (05:00)
[2016-11-01] MEDS ORDERED: AMPICILLIN 1 GM/NS (PMX) 50 ML IV SCH (07:00)
[2016-11-01] MEDS ORDERED: FENTAnyl 2MCG/ML-ROPIV 0.2% 100 ML ONE (15:21)
[2016-11-01] MEDS ORDERED: FENTAnyl 2MCG/ML-ROPIV 0.2% 100 ML BAG EPI SCH (16:00)
[2016-11-01] MEDS ORDERED: ONDANSETRON 4 MG INJ IV PRN (16:00)
[2016-11-01] MEDS ORDERED: DIPHENHYDRAMINE 50 MG INJ IV PRN (16:00)
[2016-11-01] MEDS ORDERED: NALOXONE (0.4 MG/ML) INJ IV PRN (16:00)
[2016-11-01] MEDS ORDERED: EPHEDrine SULFATE 50 MG/5 ML SYG IV PRN (16:00)
--- NOTE | 2016-11-01 18:37 | HP ---
Date/Time of Note Date/Time of Note DATE: 11/01/16 TIME: 18:29 OB - History Hx of Present Free Text/Dictation 26 years old female 4 para [id number] EDC October 30, 2006 admitted to [facility] with complaint of labor contraction, pelvic examination on admission cervix 2.5 cm 100% effaced vertex at -2 station contraction mild less than 5 contractions and 10 minutes heart rate 120 she was told there is a possibility that baby may have only one umbilical or is being admitted under close observation to monitor her labor Chief Complaint: Labor pain Estimated Due Date: Oct 30, 2016 : 4 Para: 1 Spontaneous : 2 Therapeutic : 1 Care: Limited Care Ultrasounds: Normal mid trimester US Obstetrical Complications: None Medical Complications: None Other Concerns: Baby suspected with 1 umbilical artery Past Family/Social History * Past Medical, Surgical, Family and Obstetric Histories reviewed from chart. Rubella: immune RPR/VDRL: Negative GBS Status: Negative HBsAG: Negative OB Admission Exam Vital Signs Vital Signs Vital Signs Date Time Temp Pulse Resp B/P Pulse Ox O2 Delivery O2 Flow Rate FiO2 11/01/16 02:08 98.4 18 17 119/80 Room Air Physical Exam HEENT: WNL Heart: Rhythm Normal Lungs: Clear, Equal Abdomen: WNL Extremities: Normal Cervical Dilatation: 2cm Effacement: 100% Station: -2 Membranes: Intact Heart Rate: 120's Decelerations: Variable Decelerations Varibility: Moderate Contractions on Admission: 6-10 Minutes Apart Intensity: Moderate Last 72 hours Lab Results CBC & BMP 11/01/16 02:52 MARISSA RIVERO MD Nov 01, 2016 18:37
[2016-11-02] MEDS: LACTATED RINGER'S 1,000 ML IV SCH (03:05)
[2016-11-02] MEDS: OXYTOCIN 30 UNITS/LR 500 ML IV SCH ×2 (07:24→08:03)
--- NOTE | 2016-11-02 08:31 | LDN ---
Date/Time of Note Date/Time of Note DATE: 11/02/16 TIME: 08:27 Delivery Summary November 02, 2016 Spontaneous vaginal delivery note Weeks of Gestation 40 weeks and 4 days post date Placenta Delivered: Spontaneously Meconium: Thick Episiotomy: No Anesthesia type: Epidural Estimated blood loss: 200 Sponge & Needle done & correct: Yes All needle counts correct: Yes Any foreign bodies felt in the: No Problems: Infant Delivery Information Sex Sex: male Apgars 1 Minute: 7 5 Minute: 9 Suctioning Nose & mouth suctioned at angeli: Yes Delee suction performed: No Umbilical Cord Umbilical cord with: 3 Vessels Cord presentations: nuchal cord Nuchal cord present X: 1 Cord Blood was obtained: Yes Mother & Baby Disposition Disposition Mom transferred to: Med/Surg TARAH TOLEDO MD Nov 02, 2016 08:31
[2016-11-02] MEDS ORDERED: OXYTOCIN 30 UNITS/LR 500 ML IV SCH (09:21)
[2016-11-02 09:30] VITALS: BP 117/72; PULSE 78; RESP 16
[2016-11-02] MEDS ORDERED: LANOLIN 7 GM TUBE TOP PRN (09:30)
[2016-11-02] MEDS ORDERED: CARBOPROST 250 MCG INJ IM PRN (09:30)
[2016-11-02] MEDS ORDERED: WITCH HAZEL/GLYCERIN PAD PR PRN (09:30)
[2016-11-02] MEDS ORDERED: DIBUCAINE 1% 30 GM OINT PR PRN (09:30)
[2016-11-02] MEDS ORDERED: ACETAMINOPHEN 500 MG TAB PO PRN (09:30)
[2016-11-02] MEDS ORDERED: METHYLERGONOVINE 0.2 MG INJ IM PRN (09:30)
[2016-11-02] MEDS ORDERED: OXYCODONE/ASPIRIN (4.88/325) TAB PO PRN (09:30)
[2016-11-02] MEDS ORDERED: BENZOCAINE 20% 56 ML SPRAY TOP PRN (09:30)
[2016-11-02] MEDS ORDERED: MISOPROSTOL 200 MCG TAB PR PRN (09:30)
[2016-11-02] MEDS ORDERED: SENNA/DOCUSATE NA (8.6MG/50MG) TAB PO PRN (09:30)
[2016-11-02] MEDS ORDERED: OXYTOCIN 30 UNITS/LR 500 ML IV PRN (09:30)
[2016-11-02] MEDS: IBUPROFEN 600 MG TAB PO PRN ×2 (11:18→17:33)
[2016-11-02 12:50] VITALS: BP 105/60; PULSE 89; RESP 18
[2016-11-02 16:49] VITALS: BP 103/77; PULSE 89; RESP 18
[2016-11-02] MEDS: OXYCODONE/ASPIRIN (4.88/325) TAB PO PRN ×2 (18:26→20:47)
[2016-11-02 20:00] VITALS: BP 110/66; PULSE 83; RESP 19
[2016-11-03 03:46] VITALS: BP 107/64; PULSE 66; RESP 19
[2016-11-03] MEDS: IBUPROFEN 600 MG TAB PO PRN ×2 (03:46→22:18)
[2016-11-03] MEDS ORDERED: DIPHENHYDRAMINE 25 MG CAP PO PRN (05:00)
[2016-11-03 08:47] VITALS: BP 102/60; PULSE 68; RESP 18
--- NOTE | 2016-11-03 09:38 | PN ---
Date/Time of Note Date/Time of Note DATE: 11/03/16 TIME: 09:38 OB Subjective Subjective Subjective day 1 Afebrile Vital signs stable Abdomen soft Uterus firm Lochia normal Extremity Ambulation encouraged Current Medications Medications (Trade) Dose Ordered Sig/Jose Route PRN Reason Start Time Stop Time Status Last Admin Dose Admin Lactated Ringer's 1,000 ml @ 125 mls/hr Q8H IV 11/01/16 02:52 11/02/16 09:22 DC 11/02/16 03:05 Ampicillin 100 ml @ 100 mls/hr ONCE ONCE IV 11/01/16 03:00 11/01/16 03:59 DC 11/01/16 03:08 Ampicillin (Ampicillin 1 Gm/ NS (Pmx)) 50 ml @ 100 mls/hr Q4H IV 11/01/16 07:00 11/01/16 10:58 DC 11/01/16 07:32 Butorphanol Tartrate (Stadol) 2 mg Q2H PRN IV PAIN 11/01/16 03:00 11/02/16 09:22 DC 11/01/16 13:08 Lidocaine 30 ml 30 ml ONCE PRN INJ EPISIOTOMY/TEARING 11/01/16 03:00 11/02/16 09:22 DC Oxytocin/Lactated Ringer's 500 ml @ 125 mls/hr ONCE -MAY REPEAT X1 IV 11/01/16 03:00 11/02/16 09:22 DC 11/02/16 08:03 Oxytocin/Lactated Ringer's 500 ml @ 125 mls/hr ONCE IV 11/01/16 03:00 11/02/16 09:22 DC Ibuprofen 600 mg 600 mg ONCE PRN PO Mild Pain (Pain Score 1-3) 11/01/16 03:00 11/02/16 09:22 DC Lactated Ringer's 1,000 ml @ 2,000 mls/hr Q30M PRN IV PRE-EPIDURAL BOLUS 11/01/16 05:00 11/02/16 09:22 DC 11/01/16 12:51 Oxytocin/Lactated Ringer's 500 ml @ 0 mls/hr ONCE PRN IV For Hemorrhage Management 11/01/16 03:00 11/02/16 09:23 DC Methylergonovine Maleate (Methergine) 0.2 mg ONCE PRN IM VAGINAL BLEEDING 11/01/16 03:00 11/02/16 09:23 DC Carboprost Tromethamine (Hemabate) 250 mcg ONCE PRN IM VAGINAL BLEEDING 11/01/16 03:00 11/02/16 09:23 DC Misoprostol 1000 mcg 1,000 mcg ONCE PRN ND VAGINAL BLEEDING 11/01/16 03:00 11/02/16 09:23 DC Oxytocin/Lactated Ringer's 500 ml @ 0 mls/hr Q0M IV 11/01/16 08:00 11/02/16 09:23 DC 11/01/16 08:30 Fentanyl/ Ropivacaine 100 ml @ ud STK-MED ONCE .ROUTE 11/01/16 15:21 11/01/16 15:22 DC Naloxone HCl (Narcan) 0.1 mg Q2M PRN IV FOR RESP RATE 8 OR LESS 11/01/16 16:00 11/02/16 09:23 DC Diphenhydramine HCl (Benadryl) 25 mg Q6H PRN IV ITCHING 11/01/16 16:00 11/02/16 09:23 DC Ondansetron HCl (Zofran Inj) 4 mg Q6H PRN IV NAUSEA AND/OR VOMITING 11/01/16 16:00 11/02/16 09:23 DC 11/01/16 21:22 Fentanyl/ Ropivacaine 100 ml EPIDURAL INFUSION EPI 11/01/16 16:00 11/02/16 09:23 DC 11/02/16 02:44 Ephedrine Sulfate 5 mg PRN PRN IV BLOOD PRESSURE SUPPORT 11/01/16 16:00 11/02/16 09:23 DC Oxycodone/Aspirin (Percodan) 1 tab Q3H PRN PO PAIN LEVEL 1-5 11/02/16 09:30 11/03/16 04:58 DC 11/02/16 20:47 Oxycodone/Aspirin (Percodan) 2 tab Q3H PRN PO PAIN LEVEL 6-10 11/02/16 09:30 11/03/16 04:58 DC 11/03/16 00:47 Senna/Docusate Sodium (Senokot-S) 1 tab BID PRN PO CONSTIPATION 11/02/16 09:30 Witch Arlene/ Glycerin (Tucks Pads) 1 pad BEDSIDE MEDICATION PRN ND HEMORRHOID/EPISIOTMY PAIN 11/02/16 09:30 11/02/16 11:19 Benzocaine (Dermoplast Freedom) 1 spray BEDSIDE MEDICATION PRN TOP HEMORRHOID/EPISIOTMY PAIN 11/02/16 09:30 11/02/16 11:18 Dibucaine (Nupercainal) 1 applic BEDSIDE MEDICATION PRN ND HEMORRHOID/EPISIOTMY PAIN 11/02/16 09:30 11/02/16 11:18 Lanolin ([id number]) 1 applic BEDSIDE MEDICATION PRN TOP BEDSIDE FOR MORIS TO NIPPLES 11/02/16 09:30 11/02/16 11:18 Diphtheria/ Tetanus/Acell Pertussis 0.5 ml 0.5 ml ONCE ONCE IM* 11/04/16 09:00 11/04/16 09:01 Oxytocin/Lactated Ringer's 500 ml @ 0 mls/hr ONCE PRN IV For Hemorrhage Management 11/02/16 09:30 Methylergonovine Maleate (Methergine) 0.2 mg ONCE PRN IM VAGINAL BLEEDING 11/02/16 09:30 Carboprost Tromethamine (Hemabate) 250 mcg ONCE PRN IM VAGINAL BLEEDING 11/02/16 09:30 Misoprostol 1000 mcg 1,000 mcg ONCE PRN ND VAGINAL BLEEDING 11/02/16 09:30 Oxytocin/Lactated Ringer's 500 ml @ 125 mls/hr Q4H IV 11/02/16 09:21 11/02/16 19:00 DC Ibuprofen (Motrin) 600 mg Q6H PRN PO PAIN 11/02/16 09:30 11/03/16 03:46 Acetaminophen (Tylenol Tab) 500 mg Q6H PRN PO PAIN AND OR ELEVATED TEMP 11/02/16 09:30 Diphenhydramine HCl (Benadryl) 25 mg Q6H PRN PO ITCHING 11/03/16 05:00 11/03/16 05:05 MARISSA RIVERO MD Nov 03, 2016 09:38
[2016-11-03 10:46] LABS: ABNORMAL IP MESSAGE 1; BASOPHILS % 0.3 % (0.0-2.0); EOSINOPHILS # 0.1 10^3/ul (0.0-0.5); EOSINOPHILS % 0.6 % (0.0-7.0); HEMATOCRIT 22.6 % (37.0-47.0); LYMPHOCYTES # 2.8 10^3/ul (0.8-2.9); LYMPHOCYTES % 25.4 % (15.0-51.0); MEAN CORPUSCULAR HEMOGLOBIN 23.8 pg (29.0-33.0); MEAN CORPUSCULAR VOLUME 76.9 fl (82.0-101.0); MEAN PLATELET VOLUME 11.6 fl (7.4-10.4); MONOCYTE # 0.7 10^3/ul (0.3-0.9); MONOCYTES % 5.9 % (0.0-11.0); NEUTROPHIL # 7.5 10^3/ul (1.6-7.5); NEUTROPHILS % 67.3 % (39.0-77.0); NUCLEATED RED BLOOD CELLS% 0.2 /100WBC (0.0-0.0); PLATELET COUNT 229 10^3/UL (140-415); RED BLOOD COUNT 2.94 10^6/ul (4.20-5.40); RED CELL DISTRIBUTION WIDTH 23.4 % (11.5-14.5); WHITE BLOOD COUNT 11.1 10^3/ul (4.8-10.8)
[2016-11-03 10:50] LABS: POSITIVE DIFF @See below
[2016-11-03 16:01] VITALS: BP 110/62; PULSE 75; RESP 19
[2016-11-03 20:00] VITALS: BP 112/72; PULSE 83; RESP 18
[2016-11-04 03:31] VITALS: BP 110/64; PULSE 70; RESP 20
[2016-11-04 08:00] VITALS: BP 116/82; PULSE 71
[2016-11-04] MEDS ORDERED: DIPHTH/TET/ACEL PERTUSS (ADULT) 0.5 ML VIAL IM* ONE (09:00)
--- NOTE | 2016-11-04 10:27 | DS ---
Date/Time of Note Date/Time of Note DATE: 11/04/16 TIME: 10:25 Obstetrical Discharge Record Final Diagnosis Final Diagnosis: Term delivered Vaginal Delivery Obstetrical Delivery: Spontaneous Complications Augmentation: No Rupture of Membranes: No Condition on Discharge Physical Assessment Voiding: Yes Bowel Movement: Yes Breast: Soft, non-tender Fundus: Firm Abdomen and Incision: Current Medications Medications (Trade) Dose Ordered Sig/Jose Route PRN Reason Start Time Stop Time Status Last Admin Dose Admin Lactated Ringer's 1,000 ml @ 125 mls/hr Q8H IV 11/01/16 02:52 11/02/16 09:22 DC 11/02/16 03:05 Ampicillin 100 ml @ 100 mls/hr ONCE ONCE IV 11/01/16 03:00 11/01/16 03:59 DC 11/01/16 03:08 Ampicillin (Ampicillin 1 Gm/ NS (Pmx)) 50 ml @ 100 mls/hr Q4H IV 11/01/16 07:00 11/01/16 10:58 DC 11/01/16 07:32 Butorphanol Tartrate (Stadol) 2 mg Q2H PRN IV PAIN 11/01/16 03:00 11/02/16 09:22 DC 11/01/16 13:08 Lidocaine 30 ml 30 ml ONCE PRN INJ EPISIOTOMY/TEARING 11/01/16 03:00 11/02/16 09:22 DC Oxytocin/Lactated Ringer's 500 ml @ 125 mls/hr ONCE -MAY REPEAT X1 IV 11/01/16 03:00 11/02/16 09:22 DC 11/02/16 08:03 Oxytocin/Lactated Ringer's 500 ml @ 125 mls/hr ONCE IV 11/01/16 03:00 11/02/16 09:22 DC Ibuprofen 600 mg 600 mg ONCE PRN PO Mild Pain (Pain Score 1-3) 11/01/16 03:00 11/02/16 09:22 DC Lactated Ringer's 1,000 ml @ 2,000 mls/hr Q30M PRN IV PRE-EPIDURAL BOLUS 11/01/16 05:00 11/02/16 09:22 DC 11/01/16 12:51 Oxytocin/Lactated Ringer's 500 ml @ 0 mls/hr ONCE PRN IV For Hemorrhage Management 11/01/16 03:00 11/02/16 09:23 DC Methylergonovine Maleate (Methergine) 0.2 mg ONCE PRN IM VAGINAL BLEEDING 11/01/16 03:00 11/02/16 09:23 DC Carboprost Tromethamine (Hemabate) 250 mcg ONCE PRN IM VAGINAL BLEEDING 11/01/16 03:00 11/02/16 09:23 DC Misoprostol 1000 mcg 1,000 mcg ONCE PRN IA VAGINAL BLEEDING 11/01/16 03:00 11/02/16 09:23 DC Oxytocin/Lactated Ringer's 500 ml @ 0 mls/hr Q0M IV 11/01/16 08:00 11/02/16 09:23 DC 11/01/16 08:30 Fentanyl/ Ropivacaine 100 ml @ [facility] ONCE .ROUTE 11/01/16 15:21 11/01/16 15:22 DC Naloxone HCl (Narcan) 0.1 mg Q2M PRN IV FOR RESP RATE 8 OR LESS 11/01/16 16:00 11/02/16 09:23 DC Diphenhydramine HCl (Benadryl) 25 mg Q6H PRN IV ITCHING 11/01/16 16:00 11/02/16 09:23 DC Ondansetron HCl (Zofran Inj) 4 mg Q6H PRN IV NAUSEA AND/OR VOMITING 11/01/16 16:00 11/02/16 09:23 DC 11/01/16 21:22 Fentanyl/ Ropivacaine 100 ml EPIDURAL INFUSION EPI 11/01/16 16:00 11/02/16 09:23 DC 11/02/16 02:44 Ephedrine Sulfate 5 mg PRN PRN IV BLOOD PRESSURE SUPPORT 11/01/16 16:00 11/02/16 09:23 DC Oxycodone/Aspirin (Percodan) 1 tab Q3H PRN PO PAIN LEVEL 1-5 11/02/16 09:30 11/03/16 04:58 DC 11/02/16 20:47 Oxycodone/Aspirin (Percodan) 2 tab Q3H PRN PO PAIN LEVEL 6-10 11/02/16 09:30 11/03/16 04:58 DC 11/03/16 00:47 Senna/Docusate Sodium (Senokot-S) 1 tab BID PRN PO CONSTIPATION 11/02/16 09:30 Witch Arlene/ Glycerin (Tucks Pads) 1 pad BEDSIDE MEDICATION PRN IA HEMORRHOID/EPISIOTMY PAIN 11/02/16 09:30 11/02/16 11:19 Benzocaine (Dermoplast Cord) 1 spray BEDSIDE MEDICATION PRN TOP HEMORRHOID/EPISIOTMY PAIN 11/02/16 09:30 11/02/16 11:18 Dibucaine (Nupercainal) 1 applic BEDSIDE MEDICATION PRN IA HEMORRHOID/EPISIOTMY PAIN 11/02/16 09:30 11/02/16 11:18 Lanolin ([id number]) 1 applic BEDSIDE MEDICATION PRN TOP BEDSIDE FOR MORIS TO NIPPLES 11/02/16 09:30 11/02/16 11:18 Diphtheria/ Tetanus/Acell Pertussis 0.5 ml 0.5 ml ONCE ONCE IM* 11/04/16 09:00 11/04/16 09:01 DC Oxytocin/Lactated Ringer's 500 ml @ 0 mls/hr ONCE PRN IV For Hemorrhage Management 11/02/16 09:30 Methylergonovine Maleate (Methergine) 0.2 mg ONCE PRN IM VAGINAL BLEEDING 11/02/16 09:30 Carboprost Tromethamine (Hemabate) 250 mcg ONCE PRN IM VAGINAL BLEEDING 11/02/16 09:30 Misoprostol 1000 mcg 1,000 mcg ONCE PRN IA VAGINAL BLEEDING 11/02/16 09:30 Oxytocin/Lactated Ringer's 500 ml @ 125 mls/hr Q4H IV 11/02/16 09:21 11/02/16 19:00 DC Ibuprofen (Motrin) 600 mg Q6H PRN PO PAIN 11/02/16 09:30 11/03/16 22:18 Acetaminophen (Tylenol Tab) 500 mg Q6H PRN PO PAIN AND OR ELEVATED TEMP 11/02/16 09:30 Diphenhydramine HCl (Benadryl) 25 mg Q6H PRN PO ITCHING 11/03/16 05:00 11/03/16 05:05 Episiotomy: Perineum was intact Calf Tenderness: No Patient Condition: Good TARAH TOLEDO MD Nov 04, 2016 10:27
== END 2016-11-04 15:00 | disposition home or self-care (01) | DRG 775 ==
LOC: L-D 01:50 → OBT 01:50 → L-D 02:40 → OBT 02:40 → PP1 11-02 09:39
PROVIDERS: ADMIT Obstetrics & Gynecology; ATTEND Obstetrics & Gynecology
PROC: 10E0XZZ Delivery of Products of Conception, External Approach (ICD-10-PCS; principal; 2016-11-02)
PROC: 3E033VJ Introduction of Other Hormone into Peripheral Vein, Percutaneous Approach (ICD-10-PCS; 2016-11-02)
DX: O48.0 Post-term pregnancy (principal); O69.81X0 Labor and delivery complicated by cord around neck, without compression, not applicable or unspecified; Z3A.40 40 weeks gestation of pregnancy; Z37.0 Single live birth
CPT/HCPCS: 62319; 84112; 85025; 85610; 85730; 86592; 86900; 86901; 87340; 90715; 99464; G0463; J0290; J0595; J2405; J2590; J3010; J7120

== ENCOUNTER 2017-01-12 08:10 | Emergency (ER) | END 2017-01-12 10:09 | disposition home or self-care (01) | DX: K80.50 Calculus of bile duct without cholangitis or cholecystitis without obstruction (principal) | CPT/HCPCS: 36415; 76705; 80053; 81001; 83690; 84703; 85025; 96374; J1885; J7030; Z7502 ==

== ENCOUNTER 2017-01-15 10:03 | Emergency (ER) | payer MEDICAID ==
[~2017-01-15] VITALS: Ht 154.9 cm; Wt 57.5 kg
[~2017-01-15 10:03] MED LIST changes: +FERR325C PO; -PRENAT PO; +TRAM50TA2 PO
[2017-01-15 10:04] VITALS: Ht 154.9 cm; Wt 57.5 kg
[2017-01-15] MEDS ORDERED: ONDANSETRON 4 MG INJ IV STA (10:35)
[2017-01-15] MEDS ORDERED: DICYCLOMINE 10 MG CAP PO ONE (11:00)
[2017-01-15 11:24] LABS: BASOPHILS % 0.4 % (0.0-2.0); EOSINOPHILS # 0.1 10^3/ul (0.0-0.5); EOSINOPHILS % 2.1 % (0.0-7.0); HEMATOCRIT 32.4 % (37.0-47.0); HEMOGLOBIN 10.2 g/dl (12.0-16.0); LYMPHOCYTES # 1.7 10^3/ul (0.8-2.9); LYMPHOCYTES % 35.8 % (15.0-51.0); MEAN CORPUSCULAR HEMOGLOBIN 25.7 pg (29.0-33.0); MEAN CORPUSCULAR HGB CONC 31.5 g/dl (32.0-37.0); MEAN CORPUSCULAR VOLUME 81.6 fl (82.0-101.0); MEAN PLATELET VOLUME 9.8 fl (7.4-10.4); MONOCYTE # 0.4 10^3/ul (0.3-0.9); MONOCYTES % 8.2 % (0.0-11.0); NEUTROPHIL # 2.5 10^3/ul (1.6-7.5); NEUTROPHILS % 53.5 % (39.0-77.0); PLATELET COUNT 437 10^3/UL (140-415); RED BLOOD COUNT 3.97 10^6/ul (4.20-5.40); RED CELL DISTRIBUTION WIDTH 18.3 % (11.5-14.5); WHITE BLOOD COUNT 4.7 10^3/ul (4.8-10.8)
--- NOTE | 2017-01-15 11:28 | RADRPT ---
PROCEDURE: US right upper quadrant abdomen. CLINICAL INDICATION: Abdominal pain TECHNIQUE: Multiple real-time images were acquired of the patient's right upper quadrant abdomen utilizing a high resolution transducer. COMPARISON: 01/12/2017 FINDINGS: The liver demonstrates normal echogenicity and normal size without focal lesions. Patent portal vein . 1.7 cm gallstone in the gallbladder neck without gallbladder distension, pericholecystic fluid or gallbladder wall thickening. No intrahepatic or extrahepatic biliary dilatation. The common bile d uct measures 3 mm in maximal dimension. The visualized portions of the pancreas are normal. The rig ht kidney is normal size with normal echogenicity and morphology. The right kidney measures 9.0 cm. No hydronephrosis or perinephric fluid collections. There are no areas of increased echogenicity to suggest nephrolithiasis. Normal caliber aorta and IVC. No peritoneal free fluid. IMPRESSION: Cholelithiasis without ultrasound evidence of cholecystitis. RPTAT:AAJJ Physician Kendrick Date Time Electronically viewed and signed by Physician Kendrick on 01/15/2017 11:28 /
[2017-01-15 11:30] LABS: ALBUMIN 4.4 g/dl (3.3-4.9); ALBUMIN/GLOBULIN RATIO 1.29; BILIRUBIN,INDIRECT 0.2 mg/dl (0-1.1); BILIRUBIN,TOTAL 0.2 mg/dl (0.2-1.3); CALCIUM 9.3 mg/dl (8.4-10.2); CREATININE 0.69 mg/dl (0.44-1.00); POTASSIUM 4.2 mmol/L (3.5-5.1); TOTAL PROTEIN 7.8 g/dl (6.1-8.1)
[2017-01-15 11:48] LABS: ADD UMIC YES; UR ASCORBIC ACID NEGATIVE (NEGATIVE); UR BILIRUBIN (Dip) NEGATIVE (NEGATIVE); UR BLOOD (Dip) NEGATIVE (NEGATIVE); UR CLARITY SLIGHTLY CLOUDY (CLEAR); UR COLOR YELLOW (YELLOW); UR GLUCOSE (Dip) NEGATIVE (NEGATIVE); UR KETONES (Dip) NEGATIVE (NEGATIVE); UR LEUKOCYTE ESTERASE (Dip) 1+ Leu/ul (NEGATIVE); UR MUCUS FEW /HPF (NONE SEEN); UR NITRITE (Dip) NEGATIVE (NEGATIVE); UR RBC 1 /HPF (0-5); UR SPECIFIC GRAVITY (Dip) 1.024 (1.003-1.030); UR SQUAMOUS EPITHELIAL CELL FEW /HPF (FEW); UR TOTAL PROTEIN (Dip) NEGATIVE (NEGATIVE); UR UROBILINOGEN (Dip) NEGATIVE (NEGATIVE)
[2017-01-15] MEDS ORDERED: DICY10CA60 PO (12:26)
[2017-01-15 12:30] VITALS: BP 112/66; PULSE 78; RESP 18; TEMP 98.2
--- NOTE | 2017-01-15 13:46 | ERD ---
ER Documentation Chief Complaint Date/Time DATE: 01/15/17 TIME: 13:41 Chief Complaint AP, HX GALLSTONES HPI 27 year-old female patient with a past medical history of gallstones presents to the ED complaining of right upper quadrant abdominal pain that started intermittently for the past 3 days. Reports that it was worsened earlier this morning. Patient reports that she was eating your [employer] food and had some sriracha which worsened her abdominal pain. Patient was seen here on January for similar symptoms and was given a prescription for tramadol. Denies any fever, nausea, vomiting, diarrhea, chest pain, shortness of breath, cough, wheezing, flank pain, dysuria, urgency, frequency, hematuria. ROS All systems reviewed and are negative except as per history of present illness. Medications Home Meds Active Scripts Dicyclomine Hcl* (Bentyl*) 10 Mg Capsule, 10 MG PO QID, #20 CAP Prov:SHILPA DORSEY PA-C 01/15/17 Tramadol HCl (Tramadol HCl) 50 Mg Tablet, 50 MG PO Q4 Y for PAIN, #20 TAB Prov:IMNERVA CAREY PA-C 01/12/17 Reported Medications Ferrous Sulfate (Iron) 325 Mg Capsule.er, 325 MG PO DAILY, CAP 11/01/16 Allergies Allergies: Coded Allergies: aspirin (Verified Allergy, Unknown, itching, 01/12/17) oxycodone (Verified Allergy, Unknown, itching, 01/12/17) PMhx/Soc Medical and Surgical Hx: pt denies Medical Hx, pt denies Surgical Hx History of Surgery: No Anesthesia Reaction: No Hx Neurological Disorder: No Hx Respiratory Disorders: No Hx Cardiac Disorders: No Hx Psychiatric Problems: No Hx Miscellaneous Medical Probl: Yes (GALL STONES ) Hx Alcohol Use: No Hx Substance Use: No Hx Tobacco Use: No Physical Exam Vitals Vital Signs Date Time Temp Pulse Resp B/P Pulse Ox O2 Delivery O2 Flow Rate FiO2 01/15/17 12:30 98.2 78 18 112/66 99 Room Air 01/15/17 10:04 97.7 83 18 114/66 99 Physical Exam Const: [id number], well-nourished. In no acute distress. Head: Atraumatic, normocephalic Eyes: Normal Conjunctiva without injection. No purulent discharge. ENT: Normal external ear, nose. Moist oropharynx without tonsillar exudates. Non -erythematous pharynx. Uvula midline. No drooling. No trismus. Neck: No cervical midline tenderness. Full range of motion. No meningismus. No cervical lymphadenopathy. No JVD. Resp: Clear to auscultation bilaterally. No wheezing, rhonchi, rales, or crackles. No accessory muscle use. No retractions. Cardio: Regular rate and rhythm. No murmurs, rubs or gallops. Abd: Soft, right upper quadrant tenderness, non distended. Normal bowel sounds. No palpable masses. No rebound tenderness. No guarding. Negative McBurney' s point. Negative psoas sign. Negative obturator sign. Skin: No petechiae or rashes Back: No midline tenderness. No CVA tenderness. Ext: No cyanosis, or edema. Neur: Awake and alert. Normal gait. Normal coordination. Psych: Normal Mood and Affect Result Diagram: 01/15/17 1050 01/15/17 1050 Results 24 hrs Laboratory Tests Test 01/15/17 10:50 01/15/17 11:21 White Blood Count 4.710^3/ul Red Blood Count 3.9710^6/ul Hemoglobin 10.2g/dl Hematocrit 32.4% Mean Corpuscular Volume 81.6fl Mean Corpuscular Hemoglobin 25.7pg Mean Corpuscular Hemoglobin Concent 31.5g/dl Red Cell Distribution Width 18.3% Platelet Count 71074^3/UL Mean Platelet Volume 9.8fl Neutrophils % 53.5% Lymphocytes % 35.8% Monocytes % 8.2% Eosinophils % 2.1% Basophils % 0.4% Nucleated Red Blood Cells % 0.0/100WBC Neutrophils # 2.510^3/ul Lymphocytes # 1.710^3/ul Monocytes # 0.410^3/ul Eosinophils # 0.110^3/ul Basophils # 0.010^3/ul Nucleated Red Blood Cells # 0.010^3/ul Sodium Level 141mmol/L Potassium Level 4.2mmol/L Chloride Level 105mmol/L Carbon Dioxide Level 26mmol/L Anion Gap 14 Blood Urea Nitrogen 13mg/dl Creatinine 0.69mg/dl Glucose Level 87mg/dl Calcium Level 9.3mg/dl Total Bilirubin 0.2mg/dl Direct Bilirubin 0.00mg/dl Indirect Bilirubin 0.2mg/dl Aspartate Amino Transf (AST/SGOT) 44IU/L Alanine Aminotransferase (ALT/SGPT) 60IU/L Alkaline Phosphatase 110IU/L Total Protein 7.8g/dl Albumin 4.4g/dl Globulin 3.40g/dl Albumin/Globulin Ratio 1.29 Lipase 117U/L Urine Color YELLOW Urine Clarity SLIGHTLY CLOUDY Urine pH 5.0 Urine Specific Argyle 1.024 Urine Ketones NEGATIVEmg/dL Urine Nitrite NEGATIVEmg/dL Urine Bilirubin NEGATIVEmg/dL Urine Urobilinogen NEGATIVEmg/dL Urine Leukocyte Esterase 1+Sonia/ul Urine Microscopic RBC 1/HPF Urine Microscopic WBC 7/HPF Urine Squamous Epithelial Cells FEW/HPF Urine Mucus FEW/HPF Urine Hemoglobin NEGATIVEmg/dL Urine Glucose NEGATIVEmg/dL Urine Total Protein NEGATIVEmg/dl Current Medications Medications (Trade) Dose Ordered Sig/Jose Route PRN Reason Start Time Stop Time Status Last Admin Dose Admin Ondansetron HCl (Zofran Inj) 4 mg ONCE STAT IV 01/15/17 10:35 01/15/17 10:38 DC 01/15/17 10:52 Dicyclomine HCl (Bentyl) 10 mg ONCE ONCE PO 01/15/17 11:00 01/15/17 11:01 DC 01/15/17 10:52 Procedures/MDM 27-year-old female patient with a past medical history of gallstones presents to the ED complaining of right upper quadrant abdominal pain. Patient is afebrile and nontoxic-appearing. Patient was seen here in January 12, 2017 for similar symptoms however today's symptoms are exacerbated due to eating spicy food. Patient had an ultrasound on January 12, 2017 which showed a single calcified stone within the gallbladder neck region moderately distended gallbladder. Patient was further worked up with CBC, CMP, lipase, UA, gallbladder ultrasound. Patient's pain and symptoms have improved after treatment with Bentyl, 4 mg IV Zofran. CBC: WBC 4.7. No e/o of systemic infection. Hbg 10.2 Hct 32.4 CMP: No e/o severe acidosis, alkalosis, renal failure, diabetic ketoacidosis, liver disease Lipase within normal limits. Urine: 1+ leukocyte esterase with 7 WBC, no nitrites, no hematuria. Urine : negative PROCEDURE: US right upper quadrant abdomen. CLINICAL INDICATION: Abdominal pain TECHNIQUE: Multiple real-time images were acquired of the patient's right upper quadrant abdomen utilizing a high resolution transducer. COMPARISON: 01/12/2017 FINDINGS: The liver demonstrates normal echogenicity and normal size without focal lesions. Patent portal vein. 1.7 cm gallstone in the gallbladder neck without gallbladder distension, pericholecystic fluid or gallbladder wall thickening. No intrahepatic or extrahepatic biliary dilatation. The common bile duct measures 3 mm in maximal dimension. The visualized portions of the pancreas are normal. The right kidney is normal size with normal echogenicity and morphology. The right kidney measures 9.0 cm. No hydronephrosis or perinephric fluid collections. There are no areas of increased echogenicity to suggest nephrolithiasis. Normal caliber aorta and IVC. No peritoneal free fluid. IMPRESSION: Cholelithiasis without ultrasound evidence of cholecystitis. Patient has cholelithiasis without any ultrasound evidence of cholecystitis. No leukocytosis noted. Patient has chronic anemia. Low suspicion for ectopic , ovarian torsion, gastritis, GERD, peptic ulcer disease, cholecystitis , choledocholithiasis, cholangitis, pancreatitis, appendicitis, bowel obstruction, ileus, volvulus, nephrolithiasis, pyelonephritis, hepatitis, perforated viscus, diverticulitis, strangulated/incarcerated hernia, DKA, acute abdomen, mesenteric ischemia or other emergent conditions. Discharge medications: Bentyl Follow up with primary care physician in 1-2 days for referral to general surgeon. Patient should follow up with her primary care physician for management of patient's anemia. Instructed patient to return to the ED sooner for any worsening symptoms. Patient's questions were answered. Patient understood and agreed with discharge plan. Patient discharged stable. Departure Diagnosis: Primary Impression: Right upper quadrant abdominal pain Condition: Stable Patient Instructions: Anemia, Biliary Colic With Gallstone (Confirmed) Referrals: [facility] YOU HAVE RECEIVED A MEDICAL SCREENING EXAM AND THE RESULTS INDICATE THAT YOU DO NOT HAVE A CONDITION THAT REQUIRES URGENT TREATMENT IN THE EMERGENCY DEPARTMENT. FURTHER EVALUATION AND TREATMENT OF YOUR CONDITION CAN WAIT UNTIL YOU ARE SEEN IN YOUR DOCTORS OFFICE WITHIN THE NEXT 1-2 DAYS. IT IS YOUR RESPONSIBILITY TO MAKE AN APPOINTMENT FOR FOLOW-UP CARE. IF YOU HAVE A PRIMARY DOCTOR --you should call your primary doctor and schedule an appointment IF YOU DO NOT HAVE A PRIMARY DOCTOR YOU CAN CALL OUR PHYSICIAN REFERRAL HOTLINE AT IF YOU CAN NOT AFFORD TO SEE A PHYSICIAN YOU CAN CHOSE FROM THE FOLLOWING [facility] [address] [facility] [address] [facility] [phone] [facility] [address] [facility] [address] [facility]. [facility] [address] [facility]. [facility] YOU HAVE RECEIVED A MEDICAL SCREENING EXAM AND THE RESULTS INDICATE THAT YOU DO NOT HAVE A CONDITION THAT REQUIRES URGENT TREATMENT IN THE EMERGENCY DEPARTMENT. FURTHER EVALUATION AND TREATMENT OF YOUR CONDITION CAN WAIT UNTIL YOU ARE SEEN IN YOUR DOCTORS OFFICE WITHIN THE NEXT 1-2 DAYS. IT IS YOUR RESPONSIBILITY TO MAKE AN APPOINTMENT FOR FOLOW-UP CARE. IF YOU HAVE A PRIMARY DOCTOR --you should call your primary doctor and schedule and appointment IF YOU DO NOT HAVE A PRIMARY DOCTOR YOU CAN CALL OUR PHYSICIAN REFERRAL HOTLINE AT . IF YOU CAN NOT AFFORD TO SEE A PHYSICIAN YOU CAN CHOSE FROM THE FOLLOWING [facility] [address] [place] [address] [facility] [address] [place], [place] [id number] [place] [address] [address] [place] [address] [facility] URGENT CARE/SPECIALTIES Additional Instructions: Call your primary care doctor TOMORROW for an appointment during the next 1-2 days for a referral to see a general surgeon and evaluation of your anemia.See the doctor sooner or return here if your condition worsens before your appointment time. SHILPA DORSEY PA-C Jan 15, 2017 13:46 SHILPA DORSEY PA-C Jan 15, 2017 13:46
== END 2017-01-15 12:30 | disposition home or self-care (01) ==
LOC: FTE 10:03
DX: R10.11 Right upper quadrant pain (principal)
CPT/HCPCS: 36415; 76705; 80053; 81001; 83690; 85025; 96374; J2405; Z7502; Z7610